=== PATIENT | female | born 1960 | race Caucasian/White ===

== ENCOUNTER → 2020-06-01 | Outpatient (CLI) | payer OTHER ==
[~2020-06-01] MED LIST: ATIVAN0.5 MG PO; CLARITIN10 MG PO; CYCLOBENZAPRINE10 MG PO; IMITREX100 MG PO; IPRAT-ALBUT 0.5-3 ML INH; K-DUR TAB 20 M20 MEQ PO; LISINOPRIL-HCT1 EAC2 PO; MOBIC15 MG PO; MYRBETRIQ50 MG PO; NORVASC5 MG PO; PEPCID40 MG PO; PERCOCET 10-321 EACH PO; SINGULAIR10 MG PO; SPIRIVA HANDIH18 MCG INH; SYMBICORT 16010.2 GM INH; TOPAMAX100 MG PO; VENTOLIN HFA 66.7 GM INH; ZOLOFT50 MG PO
== END ==
LOC: RAD 12:36
DX: J44.9 Chronic obstructive pulmonary disease, unspecified (principal); Z72.0 Tobacco use
CPT/HCPCS: 36600; 71046; 82803

== ENCOUNTER → 2020-06-01 | Outpatient (CLI) | payer OTHER | LOC: HEART 5 10:38 | DX: Z01.811 Encounter for preprocedural respiratory examination (principal); J44.9 Chronic obstructive pulmonary disease, unspecified; F17.210 Nicotine dependence, cigarettes, uncomplicated | CPT/HCPCS: 94010; 94729 ==

== ENCOUNTER → 2020-06-15 | Outpatient (CLI) | payer OTHER | LOC: SLEEP-COR 14:27 | DX: G47.33 Obstructive sleep apnea (adult) (pediatric) (principal); J44.9 Chronic obstructive pulmonary disease, unspecified; R09.02 Hypoxemia; Z01.811 Encounter for preprocedural respiratory examination; Z72.0 Tobacco use; Z99.81 Dependence on supplemental oxygen | CPT/HCPCS: 95810 ==

== ENCOUNTER → 2020-08-18 | Outpatient (CLI) | payer OTHER | LOC: KOH-I 13:30 | DX: Z01.818 Encounter for other preprocedural examination (principal); S42.141A Displaced fracture of glenoid cavity of scapula, right shoulder, initial encounter for closed fracture; M19.011 Primary osteoarthritis, right shoulder | CPT/HCPCS: 73200 ==

== ENCOUNTER → 2020-09-12 | Outpatient (CLI) | payer OTHER ==
[2020-09-12 12:59] LABS: HEMOGLOBIN 15.1 gm/dl (12.3-15.3); RED BLOOD COUNT 5.04 M/UL (4.00-5.10); WHITE BLOOD COUNT 12.9 K/UL (4.5-11.0)
[2020-09-12 13:22] LABS: BUN/CREATININE RATIO 19 (0-10)
== END ==
LOC: OPSV2 09-08 09:00 → EDSTATUS 11:00 → OPSV2 11:01
PROVIDERS: Orthopaedic Surgery
DX: Z01.818 Encounter for other preprocedural examination (principal); S42.141A Displaced fracture of glenoid cavity of scapula, right shoulder, initial encounter for closed fracture; M75.101 Unspecified rotator cuff tear or rupture of right shoulder, not specified as traumatic; J44.9 Chronic obstructive pulmonary disease, unspecified
CPT/HCPCS: 36415; 71046; 80048; 81001; 85025; 87077; 87081; 87086; 87186; 93005

== ENCOUNTER 2020-09-26 06:55 | Inpatient (IN) | payer OTHER ==
[~2020-09-26] VITALS: Ht 165.1 cm; Wt 103.4 kg
[~2020-09-26 06:55] MED LIST changes: -IPRAT-ALBUT 0.5-3 ML INH; -K-DUR TAB 20 M20 MEQ PO; -SPIRIVA HANDIH18 MCG INH; -VENTOLIN HFA 66.7 GM INH
--- NOTE | 2020-09-26 17:47 | NUR ---
CONSULT CALLED TO DR. CORDERO.
[2020-09-26 19:42] LABS: HEMOGLOBIN 13.7 gm/dl (12.3-15.3); RED BLOOD COUNT 4.52 M/UL (4.00-5.10); WHITE BLOOD COUNT 16.4 K/UL (4.5-11.0)
[2020-09-26 20:13] LABS: BUN/CREATININE RATIO 17 (0-10)
[2020-09-27 05:08] LABS: HEMOGLOBIN 12.5 gm/dl (12.3-15.3); RED BLOOD COUNT 4.17 M/UL (4.00-5.10); WHITE BLOOD COUNT 12.5 K/UL (4.5-11.0)
[2020-09-27 05:48] LABS: BUN/CREATININE RATIO 23 (0-10)
[2020-09-27] MEDS ORDERED: VENTOLIN HFA 66.7 GM INH (13:09)
[2020-09-28 04:32] LABS: HEMOGLOBIN 11.8 gm/dl (12.3-15.3); RED BLOOD COUNT 3.9 M/UL (4.00-5.10); WHITE BLOOD COUNT 10.5 K/UL (4.5-11.0)
[2020-09-28 04:52] LABS: BUN/CREATININE RATIO 18 (0-10)
[2020-09-28] MEDS ORDERED: IPRAT-ALBUT 0.5-3 ML INH (10:14)
[2020-09-28] MEDS ORDERED: SPIRIVA HANDIH18 MCG INH (10:14)
[2020-09-28] MEDS ORDERED: K-DUR TAB 20 M20 MEQ PO (11:32)
== END 2020-09-28 15:02 | disposition home or self-care (01) | DRG 483 ==
LOC: OR 06:55 → CCU 16:45 → OR 20:12 → CCU 20:12
PROVIDERS: Physician Assistant; ADMIT Orthopaedic Surgery
PROC: 5A09357 Assistance with Respiratory Ventilation, Less than 24 Consecutive Hours, Continuous Positive Airway Pressure (ICD-10-PCS; 2020-09-26)
PROC: 0RRJ00Z Replacement of Right Shoulder Joint with Reverse Ball and Socket Synthetic Substitute, Open Approach (ICD-10-PCS; principal; 2020-09-26 12:45)
DX: S42.141A Displaced fracture of glenoid cavity of scapula, right shoulder, initial encounter for closed fracture (principal); J96.21 Acute and chronic respiratory failure with hypoxia; J96.22 Acute and chronic respiratory failure with hypercapnia; M87.21 Osteonecrosis due to previous trauma, shoulder; J44.1 Chronic obstructive pulmonary disease with (acute) exacerbation; J98.11 Atelectasis; W01.0XXA Fall on same level from slipping, tripping and stumbling without subsequent striking against object, initial encounter; M19.011 Primary osteoarthritis, right shoulder; M75.101 Unspecified rotator cuff tear or rupture of right shoulder, not specified as traumatic; Z20.822 Contact with and (suspected) exposure to COVID-19; J44.9 Chronic obstructive pulmonary disease, unspecified; I10 Essential (primary) hypertension; Z90.710 Acquired absence of both cervix and uterus; Z79.899 Other long term (current) drug therapy; Z87.891 Personal history of nicotine dependence; E66.9 Obesity, unspecified; Z96.651 Presence of right artificial knee joint; Z83.3 Family history of diabetes mellitus; Z82.49 Family history of ischemic heart disease and other diseases of the circulatory system; Z82.5 Family history of asthma and other chronic lower respiratory diseases; Z99.81 Dependence on supplemental oxygen; Z68.37 Body mass index [BMI] 37.0-37.9, adult
CPT/HCPCS: 36415; 36600; 71045; 73020; 80048; 82803; 83735; 84132; 85025; 85027; 86850; 86900; 86901; 94640; 94660; 94664; 94760; 97162; 97166; 97535; C1713; C1776; J0592; J0690; J1100; J1650; J1885; J2001; J2250; J2270; J2405; J2704; J2710; J2795; J3370; J7030; J7120

== ENCOUNTER 2020-10-23 19:56 | Emergency (ER) | payer OTHER ==
[~2020-10-23 19:56] MED LIST changes: +IPRAT-ALBUT 0.5-3 ML INH; +K-DUR TAB 20 M20 MEQ PO; +SPIRIVA HANDIH18 MCG INH; +VENTOLIN HFA 66.7 GM INH
== END 2020-10-23 21:40 | disposition home or self-care (01) ==
LOC: ER1 19:56
DX: G89.18 Other acute postprocedural pain (principal); M25.511 Pain in right shoulder; I10 Essential (primary) hypertension
CPT/HCPCS: 96374; 99283; J2270